=== PATIENT | male | born 1960 | race Caucasian/White ===

== ENCOUNTER → 2018-05-03 | Outpatient (CLI) | payer BC | LOC: FIMAGING 16:08 | PROVIDERS: ATTEND Orthopaedic Surgery | DX: Z01.818 Encounter for other preprocedural examination (principal); M17.12 Unilateral primary osteoarthritis, left knee ==

== ENCOUNTER 2018-05-16 09:07 | Observation (INO) | payer BC ==
--- NOTE | 2018-05-16 07:15 | PDHPUP ---
History & Physical Update H&P update statement: This history and physical update is based on an assessment of the patient which was completed after admission or registration (within 24 hours), but prior to the surgery/procedure. H&P update: H&P reviewed & patient examined, no change in patient's condition since H&P completed
[~2018-05-16 09:07] MED LIST: ROPIVACAINE 0.2% 80 MG, EPINEPHrine 0.2 MG, KETOROLAC TROMETHAMINE 30 MG in SYRINGE 0 ML IU ONE; TRANEXAMIC ACID 3,000 MG in NS (SYRINGE) 50 ML IRR ONE; TRANEXAMIC ACID 3,000 MG/50 ML BAG IRR ONE
[2018-05-16] MEDS ORDERED: ACETAMINOPHEN 325 MG TAB PO ONE (09:17)
[2018-05-16] MEDS ORDERED: FAMOTIDINE 20 MG TAB PO ONE (09:17)
[2018-05-16] MEDS ORDERED: ceFAZolin 2 GM/DEXTROSE 100 ML IV ONE (09:17)
[2018-05-16] MEDS ORDERED: DEXAMETHASONE 4 MG/ML VIAL IVP ONE (09:17)
[2018-05-16] MEDS ORDERED: LR 1,000 ML IV ONE (09:18)
[2018-05-16] MEDS ORDERED: MIDAZOLAM 2 MG/2 ML VIAL IVP ONE (10:00)
--- NOTE | 2018-05-16 10:01 | PDANEPAE ---
ANE History of Present Illness here for TKA ANE Past Medical History - Cardiovascular History Hx Hypertension: No Hx Arrhythmias: No Hx Chest Pain: No Hx Coronary Artery / Peripheral Vascular Disease: No Hx CHF / Valvular Disease: No Hx Palpitations: No - Pulmonary History Hx COPD: No Hx Asthma/Reactive Airway Disease: No Hx Recent Upper Respiratory Infection: No Hx Oxygen in Use at Home: No Hx Sleep Apnea: Yes Sleep Apnea Screening Result - Last Documented: Positive - Neurologic History Hx Cerebrovascular Accident: No Hx Seizures: No Hx Dementia: No Neurologic History Comment: MIGRAINES - Endocrine History Hx Diabetes: Yes Endocrine History Comment: DM II. HYPOTHYROID - Renal History Hx Renal Disorders: No - Liver History Hx Hepatic Disorders: No - Neurological & Psychiatric Hx Hx Neurological and Psychiatric Disorders: No - Cancer History Hx Cancer: No - Congenital Disorder History Hx Congenital Disorders: No - GI History Hx Gastrointestinal Disorders: No - Other Health History Other Health History: NEG - Chronic Pain History Chronic Pain: Yes (L KNEE) - Surgical History Prior Surgeries: R TKA. REVISION R TKA. ACL L KNEE ANE Review of Systems Review of Systems: - Exercise capacity METS (RN): 4 METS ANE Patient History - Allergies Allergies/Adverse Reactions: Sulfa (Sulfonamide Antibiotics) Allergy (Verified 04/05/18 10:23) "Flu-like Symptoms" - Home Medications Home Medications: Aspirin [Aspirin 81mg (*)] 162 mg PO HS 04/05/18 [Last Taken 05/06/18] Cholecalciferol Vit D3 [Vitamin D3 (*)] 1,000 units PO DAILY 04/05/18 [Last Taken 05/06/18] Lisinopril [Zestril 5 mg (*)] 5 mg PO DAILY 04/05/18 [Last Taken 05/15/18] Multivitamins [Multivitamin (*)] 1 each PO DAILY 04/05/18 [Last Taken 05/06/18] [place]-3 Fatty Acids [Fish Oil 1000 mg (*)] 2,000 mg PO HS 04/05/18 [Last Taken 05/06/18] Simvastatin [Zocor] 40 mg PO HS 04/05/18 [Last Taken 05/15/18] glipiZIDE XL [Glucotrol XL 10 MG (*)] 20 mg PO DAILY 04/05/18 [Last Taken ] metFORMIN HCL [Glucophage 500 mg (*)] 1,000 mg PO BIDMEAL 04/05/18 [Last Taken 05/15/18] Levothyroxine [Synthroid 200 mcg (*)] 200 mcg PO DAILY06 04/12/18 [Last Taken 06:30] SUMAtriptan [Imitrex 50 MG (*)] 50 mg PO Q2H PRN 04/12/18 [Last Taken 1 Month Ago ~04/15/18] - NPO status NPO Since - Liquids (Date): 05/16/18 NPO Since - Liquids (Time): 08:00 NPO Since - Solids (Date): 05/15/18 NPO Since - Solids (Time): 22:00 - Smoking Hx Smoking Status: Former smoker - Family Anes Hx Family Hx Anesthesia Complications: NEG ANE Labs/Vital Signs - Vital Signs Blood Pressure: 143/74 Heart Rate: 56 Respiratory Rate: 18 O2 Sat (%): 94 Height: 190.5 cm Weight: 136.078 kg ANE Physical Exam - Airway Neck exam: FROM, increased neck circumference Mallampati Score: Class 2 Mouth exam: normal dental/mouth exam - Pulmonary Pulmonary: no respiratory distress - Cardiovascular Cardiovascular: regular rate and rhythym - ASA Status ASA Status: III ANE Anesthesia Plan Anesthesia Plan: spinal Regional Anesthesia: adductor canal FNB
[2018-05-16] MEDS ORDERED: PROPOFOL/EMULSION 500 MG/50 ML BOTTLE IV ONE ×2 (11:16→11:55)
[2018-05-16] MEDS ORDERED: LR 500 ML IV PRN (11:26)
[2018-05-16] MEDS ORDERED: DEXAMETHASONE 4 MG/ML VIAL IVP PRN (11:26)
[2018-05-16] MEDS ORDERED: ALBUTEROL 3 ML DEYVIAL IH PRN (11:26)
[2018-05-16] MEDS ORDERED: HYDROmorphONE/DILAUDID 2 MG/ML INJ IVP PRN (11:26)
[2018-05-16] MEDS ORDERED: ONDANSETRON 4 MG/2 ML VIAL IVP PRN ×2 (11:26→12:49)
[2018-05-16] MEDS ORDERED: oxyCODONE IR 5 MG TAB PO PRN (11:26)
[2018-05-16] MEDS ORDERED: NALOXONE HCL 0.4 MG/ML INJ IVP PRN (11:26)
[2018-05-16] MEDS ORDERED: fentaNYL 100 MCG/2 ML INJ IVP PRN (11:26)
[2018-05-16] MEDS ORDERED: HYDROCODONE/APAP 5/325 TAB PO PRN (11:26)
[2018-05-16] MEDS ORDERED: ROPIVACAINE HCL 150 MG/30 ML INJ ONE (12:31)
[2018-05-16] MEDS ORDERED: PROMETHAZINE HCL 25 MG/ML INJ IVP PRN (12:49)
[2018-05-16] MEDS ORDERED: LACTULOSE 20 GM/30 ML UDCUP PO PRN (12:49)
[2018-05-16] MEDS ORDERED: MAGNESIUM HYDROXIDE 30 ML UDCUP PO PRN (12:49)
[2018-05-16] MEDS ORDERED: PROMETHAZINE HCL 25 MG SUPPR PR PRN (12:49)
[2018-05-16] MEDS ORDERED: TEMAZEPAM 15 MG CAP PO PRN (12:49)
[2018-05-16] MEDS ORDERED: ONDANSETRON DISINTEGRATING 4 MG TAB PO PRN (12:49)
[2018-05-16] MEDS ORDERED: diphenhydrAMINE 25 MG CAP PO PRN (12:49)
[2018-05-16] MEDS ORDERED: DIPHENOXYLATE/ATROPINE LOMOTIL 1 TAB PO PRN (12:49)
[2018-05-16] MEDS ORDERED: METOCLOPRAMIDE 10 MG/2 ML VIAL IVP PRN (12:49)
[2018-05-16] MEDS ORDERED: BISACODYL 10 MG SUPP PR PRN (12:49)
[2018-05-16] MEDS ORDERED: POLYETHYLENE GLYCOL 3350 17 GM PKT PO PRN (12:49)
--- NOTE | 2018-05-16 12:49 | POSTOPPROG ---
Post Op Note Date of Operation: 05/16/18 Surgeon: Brittney Padron Architectural Representative: rula padron Anesthesiologist: dr. evans Anesthesia: Spinal, Other (Specify) (adductor canal blcok) Pre-op Diagnosis: left knee OA Post-op Diagnosis: same Indication: L knee pain Procedure: L TKA robot assisted Findings: severe knee OA Inf/Abcess present in the surg proc area at time of surgery?: No EBL: 50-100
[2018-05-16] MEDS ORDERED: SUMAtriptan 50 MG TAB PO PRN (12:50)
[2018-05-16] MEDS ORDERED: D50W 25 GM/50 ML SYR IVP PRN (12:51)
[2018-05-16] MEDS ORDERED: LR 1,000 ML IV SCH (13:00)
--- NOTE | 2018-05-16 14:54 | POSTANESTH ---
Post Anesthetic Evaluation Cardiovascular Status: Normal, Stable Respiratory Status: Normal, Stable Level of Consciousness/Mental Status: Can Participate in Eval Pain Control: Adequate, Prn Tx Ordered Nausea/Vomiting Control: Adequate, Prn Tx Ordered Complications Possibly Related to Anesthesia: None Noted
[2018-05-16] MEDS: CYCLOBENZAPRINE 10 MG TAB PO PRN (16:52)
[2018-05-16] MEDS: ACETAMINOPHEN 325 MG TAB PO SCH (16:53)
[2018-05-16] MEDS: metFORMIN HCL 500 MG TAB PO SCH (16:54)
[2018-05-16] MEDS: ceFAZolin 2 GM/DEXTROSE 100 ML IV SCH (17:01)
[2018-05-16] MEDS: INSULIN REGULAR HUMAN 100 UNIT/ML UNIT SC SCH ×2 (17:39→23:08)
[2018-05-16] MEDS: ASPIRIN 81 MG CHEWABLE TAB PO SCH (20:01)
[2018-05-16] MEDS: oxyCODONE IR 5 MG TAB PO PRN (20:01)
[2018-05-16] MEDS: FAMOTIDINE 20 MG TAB PO SCH (20:02)
[2018-05-16] MEDS: SENNOSIDES/DOCUSATE SODIUM TAB PO SCH (20:02)
[2018-05-16] MEDS ORDERED: ATORVASTATIN CALCIUM 20 MG TAB PO SCH (21:00)
[2018-05-17] MEDS: ACETAMINOPHEN 325 MG TAB PO SCH ×3 (00:13→12:38)
[2018-05-17] MEDS: oxyCODONE IR 5 MG TAB PO PRN ×3 (01:23→12:39)
[2018-05-17] MEDS: ceFAZolin 2 GM/DEXTROSE 100 ML IV SCH (01:24)
[2018-05-17] MEDS ORDERED: LEVOTHYROXINE 200 MCG TAB PO SCH (06:00)
[2018-05-17] MEDS: metFORMIN HCL 500 MG TAB PO SCH (08:37)
[2018-05-17] MEDS: SENNOSIDES/DOCUSATE SODIUM TAB PO SCH (08:37)
[2018-05-17] MEDS: CYCLOBENZAPRINE 10 MG TAB PO PRN (08:37)
[2018-05-17] MEDS: FAMOTIDINE 20 MG TAB PO SCH (08:38)
[2018-05-17] MEDS: ASPIRIN 81 MG CHEWABLE TAB PO SCH (08:38)
[2018-05-17] MEDS: INSULIN REGULAR HUMAN 100 UNIT/ML UNIT SC SCH ×2 (08:43→11:02)
--- NOTE | 2018-05-17 08:50 | SOAPPROG ---
SOAP Progress Note Assessment/Plan: Assessment: Patient is doing well POD 1 s/p L TKA Pain management: pain is well controlled on oral pain meds. VTE ppx: recommend aspirin 81 mg BID for 4 weeks, cont LILY and SCDs Anemia: level is expected initially postop. Asymptomatic. Continue to monitor D/c planning: d/c to home today pending release from PT postop urinary retention: straight cath'd yesterday resolved today Plan: 05/17/18 08:48 Subjective: patient is doing well ,denies SOB, chest pain and N/V Objective: Vital Signs Temp Pulse Resp BP Pulse Ox 36.4 C 48 L 16 119/60 94 05/17/18 07:35 05/17/18 07:35 05/17/18 07:35 05/17/18 07:35 05/17/18 07:35 Laboratory Results 05/17/18 04:15 05/16/18 05/17/18 05/18/18 05:59 05:59 05:59 Intake Total 2889 Output Total 1705 Balance 1184 RLE; incision dressing is clean and dry, NVI, +pf/df ICD10 Worksheet Patient Problems: Problems Problem Status Onset Primary localized osteoarthritis of left knee Acute
[2018-05-17] MEDS ORDERED: LISINOPRIL 5 MG TAB PO SCH (09:00)
--- NOTE | 2018-05-17 10:55 | ASMTLACE ---
LACE Length of stay for Answers: 2 days current admission Acuity / Level of Answers: No Care: Did the patient have an inpatient admission? Comorbidities - select Answers: Diabetes (uncontrolled or all that apply controlled) Opioid dependence / Chronic pain # of Emergency department Answers: 0 visits in the last 6 months Score: 7 Date Signed: 05/17/2018 10:54 AM Electronically Signed By:STEFANY Werner
[2018-05-17 12:11] VITALS: BP 121/68
--- NOTE | 2018-05-17 13:58 | GOP ---
DATE OF OPERATION: 05/16/2018 SURGEON: Ran Singh MD RIGGER UP: Leigha Singh, MARTIR. ANESTHESIA: Spinal. PREOPERATIVE DIAGNOSIS: Left knee osteoarthritis. POSTOPERATIVE DIAGNOSIS: Left knee osteoarthritis. PROCEDURE PERFORMED: Left total knee arthroplasty with computer navigation, robotic assist. FINDINGS: ESTIMATED BLOOD LOSS: 30 cc. INDICATIONS: The patient is a 57-year-old male with severe and progressive pain and deformity of the left knee unresponsive to conservative care. The risks and benefits of surgical intervention were e xplained in detail. DESCRIPTION OF PROCEDURE: The patient was brought to the operative room and placed on the table in t he supine position. Spinal anesthesia was induced without difficulty. A pneumatic tourniquet was appl ied about the left proximal thigh, and the leg was prepped and draped in a sterile fashion. The leg h older was applied. After exsanguination by elevation the tourniquet was inflated to 250 mmHg. Incision was made anterior medial from the tibial tuberosity to a point 2 cm proximal to the superior pole of the patella. tight tibia mild pathology, severe sharp compartmental osteoarthrit is. Medial parapatellar arthrotomy was carried out from the superior pole of the patella and posterio rly in line with the fibers of the Type II VMO. The medial collateral ligament was elevated and the i nfrapatellar fat pad was resected. The patella was everted and the articular surface was excised. A 40 mm patellar button was placed. Attention was turned first to the distal aspect of the femur. After exposure of the femur, 2 half pi ns were placed for fixation of the femoral array. In a similar fashion, 2 pins were placed anteromed ial on the tibia for fixation of the tibial array. External land marking and registration of the hip center was performed without difficulty. Internal femoral and tibial registration were carried out without difficulty and the femoral and tibial checkpoints were placed and verified for accuracy. Attention was turned to the femur. The foot print for the size 7 femoral component was cut with the saw using the [employer] robotic system and verified for accuracy against the CT based plan. In a similar f ashion, the saw was used to cut the footprint for the size 7 tibial component using the [employer] system an d verified for accuracy against the CT based plan. The tibial articular surface was excised without d ifficulty, followed by the intercondylar box cut. The knee was extended and the remnants of the medial and lateral meniscus were excised. The posterior capsule was injected with ropivacaine, epinephrine and Toradol. A size 7 tibial tray was positioned . Trial reduction was then carried out. There was excellent range of motion, alignment, and stability using the 7 x 9 mm polyethylene. All trials were then removed. The joint was thoroughly irrigated and carefully dried. The permanent 9 mm polyethylene press-fit components were implanted. The permanent 9 mm polyethylene press-fit compo nents were placed without difficulty. The tourniquet was deflated and all bleeders were coagulated. The wound was thoroughly irrigated and closed using interrupted sutures of 2-0 Vicryl for the joint capsule. The subcu was closed with 3-0 V icryl and the skin with 4-0 Monocryl. Dermabond and Steri-Strips were applied followed by a compress erinn dressing. The patient was then moved from the operating room to the recovery room in good conditi on, having tolerated the procedure well. /[id number]/MODL
== END 2018-05-17 13:18 | disposition home or self-care (01) ==
LOC: F3E 09:07 → F3N 13:48
PROVIDERS: ADMIT Orthopaedic Surgery; ATTEND Orthopaedic Surgery
DX: M17.12 Unilateral primary osteoarthritis, left knee (principal); Z87.891 Personal history of nicotine dependence; E11.9 Type 2 diabetes mellitus without complications; E03.9 Hypothyroidism, unspecified; G43.909 Migraine, unspecified, not intractable, without status migrainosus
CPT/HCPCS: 27447; 73560; 97116; 97161; G0378; J0171; J0690; J1100; J1815; J1885; J2250; J2550; J2704; J2795